=== PATIENT | male | born 1960 | race Caucasian/White ===

== ENCOUNTER → 2019-01-08 | Outpatient (CLI) | payer OTHER ==
--- NOTE | 2019-01-08 13:27 | RADIOLOGY REPORT (SQ) ---
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 TECHNIQUE: CT scanogram of the bilateral lower extremities is performed including pelvis to ankles. Measurements of femur, tibia, and entire lower extremities performed by the radiologist and saved to PACS. All CT scanners at this facility use dose modulation, iterative reconstruction, and/or weight based d osing when appropriate to reduce radiation dose to as low as reasonably achievable (ALARA). [facility]: Dose Right [facility]: CareDose [facility]: Dose Right [facility]: Teradose 4D [facility]: [place] RADIATION DOSE: 0.01 mGy. LIMITATIONS: None. FINDINGS: RIGHT: FEMUR: 44.8 cm. TIBIA: 35.4 cm. TOTAL RIGHT LOWER EXTREMITY LENGTH: 80.4 cm. LEFT: FEMUR: 44.7 cm. TIBIA: 35.0 cm. TOTAL LEFT LOWER EXTREMITY LENGTH: 80.1 cm. IMPRESSION: LEG LENGTH MEASUREMENTS DETAILED ABOVE. TECHNICAL DOCUMENTATION: JOB ID: [id number] Quality ID # [id number]: Final reports with documentation of one or more dose reduction techniques (e.g., Au tomated exposure control, adjustment of the mA and/or kV according to patient size, use of iterative reconstruction technique) 2010 [employer]- All Rights Reserved Reading location - IP/workstation name: [email or web address]
== END ==
LOC: RAD 10:09
PROVIDERS: ATTEND Podiatrist Foot & Ankle Surgery
DX: Q72.819 Congenital shortening of unspecified lower limb (principal)
CPT/HCPCS: 77073